=== PATIENT | female | born 1985 | race Caucasian/White ===

== ENCOUNTER 2018-09-13 14:54 | Emergency (ER) | payer OTHER ==
[~2018-09-13] VITALS: Ht 170.2 cm; Wt 56.7 kg
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
[2018-09-13] MEDS ORDERED: LORAZEPAM 1 MG TABLET ONE (15:39)
[2018-09-13] MEDS ORDERED: LORAZEPAM 0.5 MG TABLET PO ONE (15:45)
--- NOTE | 2018-09-13 16:22 | NUR ---
Patient discharged to home. Patient offered antianxiety meds in ED, and refused. Patient stable and discharged to home, no rx necessary. Patient did locate her car that she left on free[address] when [facility] [employer] picked her up.
--- NOTE | 2018-09-13 16:22 | NUR ---
Patient discharged to home in stable conditon. Written and verbal after care instructions given. Patient verbalizes understanding of instructions.PT WALKS I NSTEADY GAIT. PT SAYS FEELS BETTER. NO SIGN OF DISTRESS AT THIS TIME.
== END 2018-09-13 16:22 | disposition home or self-care (01) ==
LOC: ER 14:54
DX: F41.0 Panic disorder [episodic paroxysmal anxiety] (principal)
CPT/HCPCS: A4663